=== PATIENT | male | born 1970 | race Caucasian/White ===

== ENCOUNTER → 2019-06-28 | Outpatient (CLI) | payer OTHER ==
--- NOTE | 2019-06-29 02:02 | ECWPNPC ---
PATIENT NAME: DIANA APPIAH : 1970 GENDER: MALE VISIT DATE: 06/28/2019 DISCHARGE DATE: 06/28/19 0948 VISIT LOCKED DATE TIME: PHYSICIAN: HARDY ALDRICH RESOURCE: HARDY ALDRICH REASON FOR APPOINTMENT 1. CHRONIC LOW BACK HISTORY OF PRESENT ILLNESS NEW PATIENT CONSULT: WHEN DID YOUR PAIN FIRST START? . BRIEFLY DESCRIBE HOW YOUR PAIN STARTED? . HOW DOES YOUR PAIN CHANGE WITH TIME? . DOES YOUR PAIN AWAKEN YOU FROM SLEEP? . HOW MANY HOURS OF SLEEP DO YOU NORMALLY GET? . ANY DIAGNOSTIC TESTING? . FACILITY WHERE TESTS WERE DONE? ____. PAIN TREATMENT TREATMENT YES CANCER HAVE YOU EVER HAD ANY TYPE OF CANCER?NO NO. 49-YEAR-OLD GENTLEMAN HERE FOR EVALUATION AND TREATMENT OF PERSISTENT LOW BACK PAIN AND RIGHT LEG RADICULAR SYMPTOMS. INITIALLY PAIN BEGAN AFTER A CHIROPRACTIC ADJUSTMENT IN 2000. HE ENDED UP HAVING LAMINECTOMY, DISCECTOMY AT L5-S1 WITH RESOLUTION OF HIS PAIN. HAD A RESURGENCE IN LOW BACK PAIN AND BULLET LIKE SCIATIC PAIN IN 2015, WHICH RESOLVED ON ITS OWN. REPORTS THAT AFTER STANDING FOR A PROLONGED PERIOD OF TIME IN DECEMBER 2018, HE BEGAN TO EXPERIENCE LOW BACK PAIN AND RIGHT LEG PAIN THAT WAS AGGRAVATED BY BENDING. HAD SEVERE INCREASE IN PAIN IN APRIL AND SOUGHT MEDICAL ATTENTION AT THE [facility]. HE WAS PLACED ON NAPROXEN, TRAMADOL AND A MRI OF THE LS-SPINE WAS ORDERED. THIS IS SHOWING A RIGHT CENTRAL DISC PROTRUSION AT THE L5-S1 LEVEL SLIGHTLY INCREASED SINCE THE PRIOR EXAM, WHICH ABUTS THE RIGHT S1 NERVE ROOT IN THE LATERAL RECESS. PAIN IN HIS RIGHT LEG HAS GOTTEN BETTER OVER THE PAST FEW WEEKS. RATING PAIN LEVEL A 3-8/10 VAS. REPORTS NIGHTTIME AWAKENINGS DUE TO PAIN. DESCRIBES PAIN STABBING, BURNING AND SHOOTING. DENIES RECENT FEVER, ILLNESS, OR SUDDEN WEIGHT LOSS. DENIES BOWEL OR BLADDER INCONTINENCE. PAIN SCREENING: PATIENT HAS A COMPLAINT OF ACUTE OR CHRONIC PAIN :YES FALL RISK SCREENING: SCREENING : NO FALLS IN THE PAST YEAR. ALEXANDER INVENTORY: QUESTIONNAIRE ASSESSEDTBD SCORE VALUE CALCULATED TBD CURRENT MEDICATIONS TAKING ATORVASTATIN CALCIUM 80 MG TABLET 1 TABLET ORALLY ONCE A DAY TAKING BETAMETHASONE DIPROPIONATE AUG 0.05 % CREAM 1 APPLICATION EXTERNALLY TWICE A DAY DIRECTED TAKING FLURANDRENOLIDE 4 MCG/SQCM TAPE 1 APPLICATION EXTERNALLY DIRECTED TAKING FOLIC ACID 1 MG TABLET 1 TABLET ORALLY ONCE A DAY TAKING METHOTREXATE 2.5 MG TABLET DIRECTED ORALLY 1 TABLET BY MOUTH 4 DAYS A WEEK WITH FOOD FOR PSORIASIS TAKING NAPROXEN 500 MG TABLET DELAYED RELEASE 1 TABLET ORALLY TWICE A DAY WITH BREAKFAST AND DINNER NEEDED TAKING MULTIVITAMIN ADULT - TABLET DIRECTED ORALLY DAILY NOT-TAKING NORCO 5-325 MG TABLET 1-2 TABLETS NEEDED ORALLY EVERY 6 HRS, MAXIMUM 8 TABLETS PER DAY NOT-TAKING LORATADINE 10 MG TABLET 1 TABLET ORALLY ONCE A DAY NOT-TAKING FISH OIL 1000 MG CAPSULE 1 CAPSULE ORALLY ONCE A DAY NOT-TAKING MELOXICAM 15 MG TABLET 1 TABLET ORALLY ONCE A DAY NEEDED FOR PAIN/INFLAMMATION MEDICATION LIST REVIEWED AND RECONCILED WITH THE PATIENT PAST MEDICAL HISTORY TINNITUS LOW BACK PAIN PLAQUE PSORIASIS BLOCKED SALIVARY GLAND RIGHT CENTRAL DISC PROTRUSION AT L5-S1 LEVEL ALLERGIES DUST MITE FECES SURGICAL HISTORY RIGHT HEMILAMINECTOMY L5-S1 2000 RIGHT SHOULDER SURGERY 2016 SALIVARY GLAND DUCT SURGERY 1995 FAMILY HISTORY FATHER: , GLIOBLASTOMA MOTHER: 68 YRS, METASTATIC LUNG CANCER SOCIAL HISTORY GENERAL: TOBACCO USE VAPORYES OTHERS AT HOME: SPOUSE. DIET: REGULAR. LANGUAGE LANGUAGES SPOKEN:INDONESIAN RECREATIONAL DRUG USE DRUG USE?NO EXERCISE: NONE. LEARNING BARRIERS / SPECIAL NEEDS BARRIERS TO LEARNING?YES DIFFICULTY SEEING SMALL PRINT AND SOME DIFFICULTY HEARING DUE TO TINNITUS HEARING IMPAIRED?YES HAS HEARING AIDS BUT PREFERS NOT TO USE THEM. VISION IMPAIRED?YES PRESBYOPIA :CORRECTIVE LENSES COGNITIVELY IMPAIRED?NO READINESS TO LEARN?YES LEARNING PREFERENCES?YES HAS DIFFICULTY READING AND WRITING. :TAPES/VIDEOS, DEMONSTRATION/VERBAL INSTRUCTION LEARNING CAPABILITIES PRESENT?YES EMOTIONAL BARRIERS?NO SPECIAL DEVICES?NO HEAD WAITRESS NEEDED?NO PAIN CLINIC PFS, CLERGY, PUBLIC HEALTH REFERRALS WAS THE PROVIDER NOTIFIED OF ANY PERTINENT INFO?NO PUBLIC HEALTH REFERRAL NEEDED?NO CLERGY REFERRAL NEEDED?NO PFS REFERRAL NEEDED?NO LATEX QUESTIONNAIRE LATEX ALLERGY : HAVE YOU EVER DEVELOPED ANY TYPE OF REACTION AFTER HANDLING LATEX PRODUCTS SUCH RUBBER GLOVES, CONDOMS, DIAPHRAGMS, BALLOONS, SOCKS, OR UNDERWEAR?NO LATEX ALLERGY : HAVE YOU EVER DEVELOPED ANY TYPE OF REACTION DURING OR AFTER DENTAL APPOINTMENT, VAGINAL/RECTAL EXAMINATION, SURGICAL PROCEDURE, OR ANY OTHER EXPOSURE?NO LATEX RISK : HAVE YOU EVER HAD ANY DIFFICULTY BREATHING OR HIVES AFTER EATING OR HANDLING ANY FRUITS, OR VEGETABLES; SUCH KIWI, BANANAS, STONE FRUITS, OR CHESTNUTSNO LATEX RISK : DO YOU HAVE A PREVIOUS PERSONAL HISTORY OF MORE THAN NINE SURGERIES, SPINA BIFIDA, OR REPEATED CATHERIZATIONS? NO LATEX RISK : ARE YOU FREQUENTLY EXPOSED TO LATEX PRODUCTS IN YOUR OCCUPATION?NO DATE ASKED : 06/24/2019 CAFFEINE CAFFEINE USE?YES 4 CUPS COFFEE DAILY IN ADDITION TO SODA ADVANCE DIRECTIVE ADVANCE DIRECTIVE DISCUSSED WITH PATIENT:YES INFORMATION OFFERED AND DECLINED. NONDENOMINATIONAL [id number] AGNOSTIC MARITAL STATUS: . 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 HOSPITALIZATION/MAJOR DIAGNOSTIC PROCEDURE SURGERY REVIEW OF SYSTEMS REVIEWED BY: PROVIDER: HARDY WATTERS . CONSTITUTIONAL: ANY CHANGE IN YOUR MEDICAL CONDITION? NO . CHILLS NO . FEVER NO . INFECTION: DO YOU HAVE NEW INFECTIONS? NO . DO YOU HAVE HISTORY OF MRSA? NO . MUSCULOSKELETAL: ANY NEW PATTERNS OF PAIN OR NUMBNESS? YES - SLIGHTLY BETTER . SYTEMIC LUPUS NO . GASTROENTEROLOGY: ANY NEW CHANGE IN BOWEL CONTROL? NO . BARRETTS ESOPHAGUS NO . CIRRHOSIS NO . HEPATITIS NO . LIVER FAILURE NO . ACID REFLUX NO . UNEXPLAINED WEIGHT LOSS NO . GENITOURINARY: ANY NEW CHANGE IN BLADDER CONTROL? NO . IS THERE A CHANCE YOU COULD BE ? NO . HEMATOLOGY/LYMPH: DO YOU TAKE ANY BLOOD THINNERS? (FOR EXAMPLE- COUMADIN, PLAVIX, AGGRENOX, PLATEL, PRADAXA, OR XARELTO) NO . WHEN WAS YOUR LAST DOSE? DATE: TIME: . LOW PLATELET COUNT NO . SICKLE CELL DISEASE NO . VON WILLIEBRANDS NO . FACTOR V LEIDEN NO . THALLASEMIA NO . ANEMIA NO . EASY BRUISING NO . NEUROLOGY: HAVE YOU FALLEN IN THE PAST 12 MONTHS? NO . ANY NEW EXTREMITY NUMBNESS OR WEAKNESS? NO . HEAD INJURY NO . DEMENTIA NO . CEREBRAL PALSY NO . MULTIPLE SCLEROSIS NO . DIZZINESS NO . HEADACHE YES . STROKES NO . VERTIGO NO . CARDIOLOGY: DO YOU HAVE A PACEMAKER OR DEFIBRILLATOR? NO . ANGINA NO . HEART ATTACK NO . HEART SURGERY NO . CONGESTIVE HEART FAILURE/FLUID OVERLOAD NO . CHEST PAIN NO . HIGH BLOOD PRESSURE NO . IRREGULAR HEART BEAT NO . RESPIRATORY: HAVE YOU BEEN SICK IN THE PAST WEEK? NO . FEVER NO . FLU LIKE SYMPTOMS? NO . CPAP NO . BYPAP NO . ASTHMA NO . EMPHYSEMA NO . CHRONIC LUNG DISEASES NO . SHORTNESS OF BREATH ON EXERTION NO . DO YOU USE ANY TYPE OF TOBACCO (SMOKE, SMOKELESS, CHEW)? NO . COUGH NO . SNORING NO . INTEGUMENTARY: DO YOU HAVE ANY RASHES OR OPEN SORES? NO . ALLERGIC/IMMUNO: ARE YOU ALLERGIC TO IV DYE? NO . ANY NEW ALLERGIES? YES - DUST MITES . PSYCHIATRIC: DO YOU HAVE THOUGHTS OF HURTING YOURSELF OR SOMEONE ELSE? NO . ARE YOU ABUSED, NEGLECTED, OR IN AN UNSAFE ENVIRONMENT? NO . ENDOCRINOLOGY: ARE YOU DIABETIC? NO . THYROID DISORDER NO . OTHER: DO YOU NEED ANY PRESCRIPTIONS? NO . IF YES, PLEASE LIST: ____ . ANY NEW PROBLEMS WITH YOUR MEDICATIONS? NO . WHEN DID YOU LAST EAT? ____ . WHEN DID YOU LAST DRINK? ____ . WHAT DID YOU LAST DRINK? ____ . NAME OF PERSON DRIVING YOU HOME? ____ . DO YOU HAVE ANY OTHER QUESTIONS OR CONCERNS NO . VITAL SIGNS WT 206.0 LBS, HT 72 IN, BMI 27.94 INDEX, BP 130/85 MM HG, HR 87 /MIN, RR 18 /MIN, TEMP 97.6 F, OXYGEN SAT % 97%, NA INITIALS AW 0852, REVIEWED BY: LS. EXAMINATION GENERAL EXAMINATION: GENERAL AWAKE,ALERT ,PLEASANT . PSYCH AFFECT NORMAL . NECK: TRACHEA MIDLINE. NO CERVICAL OR SUPRACLAVICULAR LYMPHADENOPATHY NOTED. LUNGS: LUNG MICHELLE ARE CLEAR TO AUSCULTATION BILATERALLY. GOOD MOVEMENT OF AIR . HEART: S1, S2 IN A REGULAR RATE AND RHYTHM. NO SIGNIFICANT MURMURS, RUBS OR GALLOPS NOTED . MUSCULOSKELETAL: MUSCLE STRENGTH TESTING 5/5 BILATERAL UPPER/LOWER EXTREMITIES. LUMBAR: PALPATION: NEGATIVE FOR PAIN OVER L/S SPINE. NEGATIVE FOR PAIN OVER L/S PARASPINALS. NEGATIVE SI TENDERNESS. SKIN: NO RASH OR SKIN LESIONS. DIAGNOSTIC TESTS REVIEWED MRI L/S SPINE-05/19/2019. ASSESSMENTS LUMBAR DISC DISORDER - M51.9 (PRIMARY) LUMBAR RADICULOPATHY, RIGHT - M54.16 TREATMENT LUMBAR DISC DISORDER NOTES: REQUEST TO STOP METHOTREXATE 3 DAYS PRE-PROCEDURE AND RESTART 3 DAYS POST FROM PRESCRIBING MDL4-5. LESI/CAUDAL. OTHERS NOTES: LUMBAR EPIDURAL STEROID INJECTION MATERIAL WAS PUBLISHED TO [employer]. PREVENTIVE MEDICINE PAIN CLINIC TEACHING: PROCEDURE TEACHING PRE PROCEDURE INSTRUCTIONS REVIEWED WITH PT. VERBALIZED UNDERSTANDING.. PROCEDURE CODES FA211 ESTABILISHED PATIENT [facility] CHARGE DISPOSITION & COMMUNICATION FOLLOW UP POST (REASON: L4-5. LESI/CAUDAL) ELECTRONICALLY SIGNED BY DUONG MCCLELLAN ON 06/28/2019 AT 03:56 PM EST DISCLAIMER : THIS IS A VISIT SUMMARY EXTRACTED FROM THE [employer] CHART. IT IS NOT A COPY OF THE [employer] PROGRESS NOTE. ANN
== END ==
LOC: M PAIN 08:45
PROVIDERS: ATTEND Nurse Practitioner Family
DX: M51.9 Unspecified thoracic, thoracolumbar and lumbosacral intervertebral disc disorder (principal); M54.16 Radiculopathy, lumbar region

== ENCOUNTER → 2019-08-04 | Outpatient (CLI) | payer OTHER ==
[~2019-08-04] MED LIST: ISOVUE-M 300 61% 15ML VIAL (Q9967) As Ordered ONE; LIDOCAINE 1% SDV 30ML VIAL As Ordered ONE; diazePAM 5 MG TAB As Ordered ONE; methylPREDNISolone SUSP 40 MG/ML (DEPO-medrol) VIAL (J1030) As Ordered ONE; oxyCODONE 5MG TAB As Ordered ONE
--- NOTE | 2019-08-04 16:37 | REP ---
C-ARM VIEWS SACRUM AND COCCYX: CLINICAL HISTORY: Pain. Lateral C-arm views of sacrum and coccyx are performed during injection by Dr. Shah. 12 seconds of fluoroscopy time utilized. Electronically Signed by Arcenio Rodriguez MD 08/04/2019 04:47 P
--- NOTE | 2019-08-20 01:54 | ECWPNPC ---
PATIENT NAME: DIANA APPIAH : 1970 GENDER: MALE VISIT DATE: 08/04/2019 DISCHARGE DATE: 08/04/19 1500 VISIT LOCKED DATE TIME: PHYSICIAN: KALLIE BHARDWAJ MD RESOURCE: KALLIE BHARDWAJ MD REASON FOR APPOINTMENT 1. CAUDAL EPIDURAL HISTORY OF PRESENT ILLNESS HISTORY OF PRESENT ILLNESS: PAIN THE PATIENT DESCRIBES THE PAIN... FALL RISK SCREENING: SCREENING :NO FALLS REPORTED IN THE LAST YEAR CURRENT MEDICATIONS TAKING ATORVASTATIN CALCIUM 80 MG TABLET 1 TABLET ORALLY ONCE A DAY, NOTES: 08/01/19 TAKING BETAMETHASONE DIPROPIONATE AUG 0.05 % CREAM 1 APPLICATION EXTERNALLY TWICE A DAY DIRECTED, NOTES: MORE THAN 2 WEEKS AGO TAKING FLURANDRENOLIDE 4 MCG/SQCM TAPE 1 APPLICATION EXTERNALLY DIRECTED, NOTES: MORE THAN 2 WEEKS TAKING FOLIC ACID 1 MG TABLET 1 TABLET ORALLY ONCE A DAY, NOTES: 2 WEEKS AGO TAKING METHOTREXATE 2.5 MG TABLET DIRECTED ORALLY 1 TABLET BY MOUTH 4 DAYS A WEEK WITH FOOD FOR PSORIASIS, NOTES: MORE THAN 2 WEEKS AGO TAKING NAPROXEN 500 MG TABLET DELAYED RELEASE 1 TABLET ORALLY TWICE A DAY WITH BREAKFAST AND DINNER NEEDED, NOTES: 1 WEEK AGO TAKING MULTIVITAMIN ADULT - TABLET DIRECTED ORALLY DAILY, NOTES: 08/01/19 NOT-TAKING NORCO 5-325 MG TABLET 1-2 TABLETS NEEDED ORALLY EVERY 6 HRS, MAXIMUM 8 TABLETS PER DAY NOT-TAKING LORATADINE 10 MG TABLET 1 TABLET ORALLY ONCE A DAY NOT-TAKING FISH OIL 1000 MG CAPSULE 1 CAPSULE ORALLY ONCE A DAY NOT-TAKING MELOXICAM 15 MG TABLET 1 TABLET ORALLY ONCE A DAY NEEDED FOR PAIN/INFLAMMATION MEDICATION LIST REVIEWED AND RECONCILED WITH THE PATIENT PAST MEDICAL HISTORY TINNITUS LOW BACK PAIN PLAQUE PSORIASIS BLOCKED SALIVARY GLAND RIGHT CENTRAL DISC PROTRUSION AT L5-S1 LEVEL ALLERGIES DUST MITE FECES SURGICAL HISTORY RIGHT HEMILAMINECTOMY L5-S1 2000 RIGHT SHOULDER SURGERY 2016 SALIVARY GLAND DUCT SURGERY 1995 FAMILY HISTORY FATHER: , GLIOBLASTOMA MOTHER: 68 YRS, METASTATIC LUNG CANCER SOCIAL HISTORY GENERAL: TOBACCO USE VAPORYES OTHERS AT HOME: SPOUSE. DIET: REGULAR. LANGUAGE LANGUAGES SPOKEN:HEBREW NEW PATIENT PAIN DIARY PATIENT DESCRIBES PAIN :BURNING, IT COMES AND GOES FROM 0-10, WHAT LEVEL IS YOUR PAIN TODAY?3 RECREATIONAL DRUG USE DRUG USE?NO EXERCISE: NONE. LEARNING BARRIERS / SPECIAL NEEDS BARRIERS TO LEARNING?YES DIFFICULTY SEEING SMALL PRINT AND SOME DIFFICULTY HEARING DUE TO TINNITUS HEARING IMPAIRED?YES HAS HEARING AIDS BUT PREFERS NOT TO USE THEM. VISION IMPAIRED?YES PRESBYOPIA COGNITIVELY IMPAIRED?NO :CORRECTIVE LENSES READINESS TO LEARN?YES LEARNING PREFERENCES?YES HAS DIFFICULTY READING AND WRITING. 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 NO , CLERGY REFERRAL NEEDED? NO , PUBLIC HEALTH REFERRAL NEEDED? NO , WAS THE PROVIDER NOTIFIED OF ANY PERTINENT INFO? NO. LATEX QUESTIONNAIRE LATEX ALLERGY : HAVE YOU EVER DEVELOPED ANY TYPE OF REACTION AFTER HANDLING LATEX PRODUCTS SUCH RUBBER GLOVES, CONDOMS, DIAPHRAGMS, BALLOONS, SOCKS, OR UNDERWEAR?NO LATEX ALLERGY : HAVE YOU EVER DEVELOPED ANY TYPE OF REACTION DURING OR AFTER DENTAL APPOINTMENT, VAGINAL/RECTAL EXAMINATION, SURGICAL PROCEDURE, OR ANY OTHER EXPOSURE?NO DATE ASKED : 06/24/2019 LATEX RISK : HAVE YOU EVER HAD ANY DIFFICULTY BREATHING OR HIVES AFTER EATING OR HANDLING ANY FRUITS, OR VEGETABLES; SUCH KIWI, BANANAS, STONE FRUITS, OR CHESTNUTSNO LATEX RISK : DO YOU HAVE A PREVIOUS PERSONAL HISTORY OF MORE THAN NINE SURGERIES, SPINA BIFIDA, OR REPEATED CATHERIZATIONS? NO LATEX RISK : ARE YOU FREQUENTLY EXPOSED TO LATEX PRODUCTS IN YOUR OCCUPATION?NO CAFFEINE CAFFEINE USE?YES 4 CUPS COFFEE DAILY IN ADDITION TO SODA ADVANCE DIRECTIVE ADVANCE DIRECTIVE DISCUSSED WITH PATIENT:YES INFORMATION OFFERED AND DECLINED. JEHOVAH'S WITNESS [id number] AGNOSTIC MARITAL STATUS: . 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 HOSPITALIZATION/MAJOR DIAGNOSTIC PROCEDURE SURGERY REVIEW OF SYSTEMS REVIEWED BY: PROVIDER: . CONSTITUTIONAL: ANY CHANGE IN YOUR MEDICAL CONDITION? NO . CHILLS NO . FEVER NO . INFECTION: DO YOU HAVE NEW INFECTIONS? NO . DO YOU HAVE HISTORY OF MRSA? NO . MUSCULOSKELETAL: ANY NEW PATTERNS OF PAIN OR NUMBNESS? NO . GASTROENTEROLOGY: ANY NEW CHANGE IN BOWEL CONTROL? NO . GENITOURINARY: ANY NEW CHANGE IN BLADDER CONTROL? NO . IS THERE A CHANCE YOU COULD BE ? NO . HEMATOLOGY/LYMPH: DO YOU TAKE ANY BLOOD THINNERS? (FOR EXAMPLE- COUMADIN, PLAVIX, AGGRENOX, PLATEL, PRADAXA, OR XARELTO) NO . WHEN WAS YOUR LAST DOSE? DATE: TIME: . NEUROLOGY: HAVE YOU FALLEN IN THE PAST 12 MONTHS? NO . ANY NEW EXTREMITY NUMBNESS OR WEAKNESS? NO . CARDIOLOGY: DO YOU HAVE A PACEMAKER OR DEFIBRILLATOR? NO . RESPIRATORY: HAVE YOU BEEN SICK IN THE PAST WEEK? NO . FEVER NO . FLU LIKE SYMPTOMS? NO . COUGH NO . INTEGUMENTARY: DO YOU HAVE ANY RASHES OR OPEN SORES? NO . ALLERGIC/IMMUNO: ARE YOU ALLERGIC TO IV DYE? NO . ANY NEW ALLERGIES? NO . PSYCHIATRIC: DO YOU HAVE THOUGHTS OF HURTING YOURSELF OR SOMEONE ELSE? NO . ARE YOU ABUSED, NEGLECTED, OR IN AN UNSAFE ENVIRONMENT? NO . ENDOCRINOLOGY: ARE YOU DIABETIC? NO . OTHER: DO YOU NEED ANY PRESCRIPTIONS? NO . IF YES, PLEASE LIST: ____ . ANY NEW PROBLEMS WITH YOUR MEDICATIONS? NO . WHEN DID YOU LAST EAT? 08/03/19 . WHEN DID YOU LAST DRINK? 08/04/19 1100 . WHAT DID YOU LAST DRINK? COFFEE WITH HONEY . NAME OF PERSON DRIVING YOU HOME? NOHELIA () . DO YOU HAVE ANY OTHER QUESTIONS OR CONCERNS NO . VITAL SIGNS WT 204.0 LBS, HT 72 IN, BMI 27.66 INDEX, BP 142/98 MM HG, HR 94 /MIN, RR 18 /MIN, TEMP 97.5 F, OXYGEN SAT % 100%, NA INITIALS AW 1300, REVIEWED BY: LS. 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 KALLIE BHARDWAJ YARN TESTER NONE ANESTHESIA LOCAL PRE PROCEDURE NOTE THE PATIENT HAS A HISTORY OF CHRONIC LOW BACK AND LEG PAIN. I EVALUATED THE PATIENT AND REVIEWED THE CHART. I WENT OVER THE RISKS, ALTERNATIVES, AND BENEFITS ASSOCIATED WITH THIS PROCEDURE. I DISCUSSED WITH THE PATIENT THAT THE USE OF STEROIDS MAY CONTRIBUTE TO IMMUNOSUPPRESSION OF HIS BODY AGAINST INFECTIONS SUCH THE DE JESUS VIRUS, COVID-19.HE IS AWARE OF THE POTENTIAL COMPLICATIONS ASSOCIATED WITH AN INFECTION OF THIS VIRUS INCLUDING . I ALSO DISCUSSED WITH THE PATIENT THE URGENCY OF THIS PROCEDURE. THE PATIENT EXPRESSED THAT HE CANNOT FUNCTION WITH THE PRESENT PAIN. THE PATIENT UNDERSTANDS THAT I CANNOT GUARANTEE OUTCOMES WITH THIS PROCEDURE. THE PATIENT GIVES CONSENT TO PERFORM THE PROCEDURE. THE PATIENT DENIES UNEXPLAINABLE WEIGHT LOSS, FEVER, CHILLS, OR NEW CHANGES IN URINARY OR BOWEL CONTROL DESCRIPTION OF PROCEDURE THE PATIENT WAS BROUGHT TO THE PROCEDURE ROOM AND PLACED IN THE PRONE POSITION. THE LUMBOSACRAL AREA WAS CLEANED WITH BETADINE SOLUTION AND DRAPED ASEPTICALLY. THE PROCEDURE WAS DONE UNDER STERILE CONDITIONS. I CHECKED LATERALITY AND THE LEVEL WHERE THE PROCEDURE WAS GOING TO BE PERFORMED WITH THE PATIENT AND THE SUPPORTING STAFF AT THE MOMENT OF THE TIME OUT IN THE PROCEDURE ROOM. UNDER FLUOROSCOPIC GUIDANCE, THE TARGET POINT WAS SELECTED AT THE EPIDURAL SPACE BELOW THE SACROCOCCYGEAL LIGAMENT. LIDOCAINE 0.5% WAS USE TO NUMB THE SKIN AND THE SUBCUTANEOUS TISSUE BELOW IT. AN EPIDURAL TUOHY NEEDLE, 17-GAUGE, WAS ADVANCED UNDER FLUOROSCOPIC GUIDANCE AND FOLLOWING PATIENT FEEDBACK UNTIL THE EPIDURAL SPACE WAS REACHED 6 CM DEEP INTO THE SKIN BY THE LOSS OF RESISTANCE TECHNIQUE. ISOVUE M DYE 30%, 0.25 ML, WAS INJECTED SHOWING ADEQUATE SPREAD OF THE DYE. THEN, A SOLUTION OF 6 ML OF NORMAL SALINE WITH DEPO-MEDROL 60 MG WAS INJECTED SLOWLY FOLLOWING THE PATIENT FEEDBACK. THERE WAS NO EVIDENCE OF BLOOD, PARESTHESIA OR CEREBROSPINAL FLUID DURING THE PROCEDURE. THE PATIENT WAS SENT TO THE RECOVERY ROOM. THE PATIENT WAS MOVING THE EXTREMITIES AND DOING WELL. THERE WAS NO COMPLICATION DURING THE PROCEDURE. FLUOROSCOPY TIME WAS 12 SECONDS POST PROCEDURE NOTE THE PATIENT WILL BE SEEN IN A FOLLOW UP IN THE NEXT FEW WEEKS. I AM LOOKING FOR LONG LASTING PAIN RELIEF FOR THE PATIENT WITH THIS INJECTION. DEPENDING ON THIS EPIDURAL'S RESULTS, I MAY CONSIDER A L5, S1 TRANSFORAMINAL EPIDURAL INJECTION IN THE FUTURE. INSTRUCTIONS WERE GIVEN, QUESTIONS WERE ANSWERED, AND THE PATIENT EXPRESSED UNDERSTANDING AND AGREES WITH THE PLAN. I, RILEY HARLEY, DOCUMENTED THE ABOVE INFORMATION ACTING A SCRIBE FOR DR. BHARDWAJ. I HAVE REVIEWED THE ABOVE DOCUMENT, WRITTEN BY RILEY HARLEY SCRIBMara AND I VERIFY THAT IT IS ACCURATE. DIAGNOSTIC IMAGING [facility] FLUORO GUIDE SPINE INJECTION (PAIN)[id number] PROCEDURE CODES 11763 LUMBAR/SACRAL W/ IMAGING 6045F RADXPS IN END [id number] PXD DISPOSITION & COMMUNICATION FOLLOW UP 3 WEEKS ELECTRONICALLY SIGNED BY KALLIE BHARDWAJ MD, MD ON 08/19/2019 AT 12:33 PM EDT DISCLAIMER : THIS IS A VISIT SUMMARY EXTRACTED FROM THE [employer]ICAL[employer]KS CHART. IT IS NOT A COPY OF THE [employer] PROGRESS NOTE. MTDD
== END ==
LOC: M PAIN 13:15
PROVIDERS: ATTEND Anesthesiology
DX: M96.1 Postlaminectomy syndrome, not elsewhere classified (principal); M51.17 Intervertebral disc disorders with radiculopathy, lumbosacral region; Z79.899 Other long term (current) drug therapy
CPT/HCPCS: 62323; J1030; Q9967

== ENCOUNTER → 2019-08-12 | Outpatient (CLI) | payer OTHER ==
--- NOTE | 2019-08-23 01:45 | ECWPNPC ---
PATIENT NAME: DIANA APPIAH : 1970 GENDER: MALE VISIT DATE: 08/12/2019 DISCHARGE DATE: 08/12/19 1000 VISIT LOCKED DATE TIME: PHYSICIAN: KALLIE BHARDWAJ MD RESOURCE: KALLIE BHARDWAJ MD REASON FOR APPOINTMENT 1. LOW BACK AND LEG PAIN HISTORY OF PRESENT ILLNESS HISTORY OF PRESENT ILLNESS: PAIN THE PATIENT DESCRIBES THE PAIN... PERMISSION FROM PATIENT WAS RECEIVED TO DO TELEPHONE OFFICE VISIT. THE PATIENT STATES THAT HE IS UNABLE TO DO ZOOM VISITS DUE TO HIS JOB. 49-YEAR-OLD MALE PATIENT WITH A HISTORY OF CHRONIC LOW BACK AND LEG PAIN. THE PATIENT DESCRIBES THE PAIN A SENSATION BUT NOT YET A PAIN WITH A PAIN SCORE RANGING FROM 0-1/10 DEPENDING ON PHYSICAL ACTIVITY. THE PATIENT STATES THAT HE RECEIVED IMPORTANT RELIEF WITH THE CAUDAL EPIDURAL PERFORMED AUGUST 04, 2019. PATIENT DENIES UNEXPLAINABLE WEIGHT LOSS, FEVER, CHILLS, NEW CHANGES ON HIS URINARY OR BOWEL CONTROL. FALL RISK SCREENING: SCREENING :NO FALLS REPORTED IN THE LAST YEAR CURRENT MEDICATIONS TAKING ATORVASTATIN CALCIUM 80 MG TABLET 1 TABLET ORALLY ONCE A DAY, NOTES: 08/01/19 TAKING BETAMETHASONE DIPROPIONATE AUG 0.05 % CREAM 1 APPLICATION EXTERNALLY TWICE A DAY DIRECTED, NOTES: MORE THAN 2 WEEKS AGO TAKING FLURANDRENOLIDE 4 MCG/SQCM TAPE 1 APPLICATION EXTERNALLY DIRECTED, NOTES: MORE THAN 2 WEEKS TAKING FOLIC ACID 1 MG TABLET 1 TABLET ORALLY ONCE A DAY, NOTES: 2 WEEKS AGO TAKING METHOTREXATE 2.5 MG TABLET DIRECTED ORALLY 1 TABLET BY MOUTH 4 DAYS A WEEK WITH FOOD FOR PSORIASIS, NOTES: NOT TAKING DURING THE COVID TAKING NAPROXEN 500 MG TABLET DELAYED RELEASE 1 TABLET ORALLY TWICE A DAY WITH BREAKFAST AND DINNER NEEDED, NOTES: 1 WEEK AGO TAKING MULTIVITAMIN ADULT - TABLET DIRECTED ORALLY DAILY, NOTES: 08/01/19 NOT-TAKING NORCO 5-325 MG TABLET 1-2 TABLETS NEEDED ORALLY EVERY 6 HRS, MAXIMUM 8 TABLETS PER DAY NOT-TAKING LORATADINE 10 MG TABLET 1 TABLET ORALLY ONCE A DAY NOT-TAKING FISH OIL 1000 MG CAPSULE 1 CAPSULE ORALLY ONCE A DAY NOT-TAKING MELOXICAM 15 MG TABLET 1 TABLET ORALLY ONCE A DAY NEEDED FOR PAIN/INFLAMMATION MEDICATION LIST REVIEWED AND RECONCILED WITH THE PATIENT PAST MEDICAL HISTORY TINNITUS LOW BACK PAIN PLAQUE PSORIASIS BLOCKED SALIVARY GLAND RIGHT CENTRAL DISC PROTRUSION AT L5-S1 LEVEL ALLERGIES DUST MITE FECES SURGICAL HISTORY RIGHT HEMILAMINECTOMY L5-S1 2000 RIGHT SHOULDER SURGERY 2016 SALIVARY GLAND DUCT SURGERY 1996 FAMILY HISTORY FATHER: , GLIOBLASTOMA MOTHER: 68 YRS, METASTATIC LUNG CANCER SOCIAL HISTORY GENERAL: TOBACCO USE VAPORYES LATEX QUESTIONNAIRE LATEX ALLERGY : HAVE YOU EVER DEVELOPED ANY TYPE OF REACTION AFTER HANDLING LATEX PRODUCTS SUCH RUBBER GLOVES, CONDOMS, DIAPHRAGMS, BALLOONS, SOCKS, OR UNDERWEAR?NO LATEX ALLERGY : HAVE YOU EVER DEVELOPED ANY TYPE OF REACTION DURING OR AFTER DENTAL APPOINTMENT, VAGINAL/RECTAL EXAMINATION, SURGICAL PROCEDURE, OR ANY OTHER EXPOSURE?NO DATE ASKED : 06/24/2019 LATEX RISK : HAVE YOU EVER HAD ANY DIFFICULTY BREATHING OR HIVES AFTER EATING OR HANDLING ANY FRUITS, OR VEGETABLES; SUCH KIWI, BANANAS, STONE FRUITS, OR CHESTNUTSNO LATEX RISK : DO YOU HAVE A PREVIOUS PERSONAL HISTORY OF MORE THAN NINE SURGERIES, SPINA BIFIDA, OR REPEATED CATHERIZATIONS? NO LATEX RISK : ARE YOU FREQUENTLY EXPOSED TO LATEX PRODUCTS IN YOUR OCCUPATION?NO ALCOHOL SCREENING DID YOU HAVE A DRINK CONTAINING ALCOHOL IN THE PAST YEAR?NO POINTS0 INTERPRETATIONNEGATIVE RECREATIONAL DRUG USE DRUG USE?NO CAFFEINE CAFFEINE USE?YES 4 CUPS COFFEE DAILY IN ADDITION TO [employer] AGNOSTIC LANGUAGE LANGUAGES SPOKEN:GUAMANIAN LEARNING BARRIERS / SPECIAL NEEDS BARRIERS TO LEARNING?YES DIFFICULTY SEEING SMALL PRINT AND SOME DIFFICULTY HEARING DUE TO TINNITUS HEARING IMPAIRED?YES HAS HEARING AIDS BUT PREFERS NOT TO USE THEM. VISION IMPAIRED?YES PRESBYOPIA :CORRECTIVE LENSES COGNITIVELY IMPAIRED?NO READINESS TO LEARN?YES LEARNING PREFERENCES?YES HAS DIFFICULTY READING AND WRITING. 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 DIET: REGULAR. EXERCISE: NONE. MARITAL STATUS: . OTHERS AT HOME: SPOUSE. NEW PATIENT PAIN DIARY TODAY'S VISIT TELEPHONE VISIT 08/12/2019 PATIENT DESCRIBES PAIN :BURNING, IT COMES AND GOES, SHARP FROM 0-10, WHAT LEVEL IS YOUR PAIN TODAY?0 PAIN CLINIC PFS, CLERGY, PUBLIC HEALTH REFERRALS HAS THE PATIENT BEEN EDUCATED REGARDING HIS/HER PLAN OF CARE?YES HAS THE PATIENT BEEN EDUCATED REGARDING PAIN, THE RISK FOR PAIN, THE IMPORTANCE OF EFFECTIVE PAIN MANAGEMENT, AND THE PAIN ASSESSMENT PROCESS?YES ADVANCE DIRECTIVE ADVANCE DIRECTIVE DISCUSSED WITH PATIENT:YES INFORMATION OFFERED AND DECLINED. HOSPITALIZATION/MAJOR DIAGNOSTIC PROCEDURE SURGERY REVIEW OF SYSTEMS REVIEWED BY: PROVIDER: KALLIE BHARDWAJ MD . CONSTITUTIONAL: ANY CHANGE IN YOUR MEDICAL CONDITION? NO . CHILLS NO . FEVER NO . INFECTION: DO YOU HAVE NEW INFECTIONS? NO . DO YOU HAVE HISTORY OF MRSA? NO . MUSCULOSKELETAL: ANY NEW PATTERNS OF PAIN OR NUMBNESS? NO . GASTROENTEROLOGY: ANY NEW CHANGE IN BOWEL CONTROL? NO . GENITOURINARY: ANY NEW CHANGE IN BLADDER CONTROL? NO . IS THERE A CHANCE YOU COULD BE ? NO . HEMATOLOGY/LYMPH: DO YOU TAKE ANY BLOOD THINNERS? (FOR EXAMPLE- COUMADIN, PLAVIX, AGGRENOX, PLATEL, PRADAXA, OR XARELTO) NO . WHEN WAS YOUR LAST DOSE? DATE: TIME: . NEUROLOGY: HAVE YOU FALLEN IN THE PAST 12 MONTHS? NO . ANY NEW EXTREMITY NUMBNESS OR WEAKNESS? NO . CARDIOLOGY: DO YOU HAVE A PACEMAKER OR DEFIBRILLATOR? NO . RESPIRATORY: HAVE YOU BEEN SICK IN THE PAST WEEK? NO . FEVER NO . FLU LIKE SYMPTOMS? NO . COUGH NO . INTEGUMENTARY: DO YOU HAVE ANY RASHES OR OPEN SORES? NO . ALLERGIC/IMMUNO: ARE YOU ALLERGIC TO IV DYE? NO . ANY NEW ALLERGIES? NO . PSYCHIATRIC: DO YOU HAVE THOUGHTS OF HURTING YOURSELF OR SOMEONE ELSE? NO . ARE YOU ABUSED, NEGLECTED, OR IN AN UNSAFE ENVIRONMENT? NO . ENDOCRINOLOGY: ARE YOU DIABETIC? NO . OTHER: DO YOU NEED ANY PRESCRIPTIONS? NO . IF YES, PLEASE LIST: ____ . ANY NEW PROBLEMS WITH YOUR MEDICATIONS? NO . WHEN DID YOU LAST EAT? ____ . WHEN DID YOU LAST DRINK? ____ . WHAT DID YOU LAST DRINK? ____ . NAME OF PERSON DRIVING YOU HOME? ____ . DO YOU HAVE ANY OTHER QUESTIONS OR CONCERNS NO . EXAMINATION GENERAL EXAMINATION: TELEPHONE VISIT. PATIENT IS ALERT, ORIENTED TIMES THREE AND COOPERATIVE. ASSESSMENTS POST LAMINECTOMY SYNDROME - M96.1 (PRIMARY) TREATMENT POST LAMINECTOMY SYNDROME CLINICAL NOTES: WE DISCUSSED SEVERAL ALTERNATIVES WITH MR. APPIHA REGARDING HIS TREATMENT OPTIONS AND CARE. THE PATIENT STATES THAT HE GOT SIGNIFICANT RELIEF FROM HIS EPIDURAL. HE EXPLAINED THAT THE INJECTION WAS UNCOMFORTABLE. I EXPLAINED TO HIM THAT IF WE NEED TO REPEAT THE INJECTION IN THE FUTURE I CAN GIVE HIM MORE PO MEDS OR EVEN DO IV SEDATION. THE PATIENT WILL FOLLOWUP WITH HARDY IN 2 MONTHS. THE PATIENT STATES THAT IS WITH HAPPY WITH HIS CURRENT RESULTS FROM THE INJECTION. THE PATIENT KNOWS TO CALL THE OFFICE IF HE HAS ANY QUESTIONS OR CONCERNS. THE PATIENT UNDERSTANDS AND IS IN AGREEMENT WITH THE TREATMENT PLAN. THE TOTAL TIME FOR THE TELEPHONE VISIT WAS 21 MINUTES. I, FRANDY VASQUES, DOCUMENTED THE ABOVE INFORMATION ACTING A SCRIBE FOR DR. BHARDWAJ. I HAVE REVIEWED THE ABOVE DOCUMENT, WRITTEN BY FRANDY VASQUES, VINER OPERATOR, AND I VERIFY THAT IT IS ACCURATE. . OTHERS CLINICAL NOTES: UNABLE TO TAKE VITAL SIGNS, THIS IS A TELEPHONE/VIRTUAL VISIT LAS. 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 CANCEL NEXT WEEK APPT (REASON: LOW BACK AND LEG PAIN) ELECTRONICALLY SIGNED BY KALLIE BHARDWAJ MD, MD ON 08/22/2019 AT 04:44 PM EDT DISCLAIMER : THIS IS A VISIT SUMMARY EXTRACTED FROM THE [facility] CHART. IT IS NOT A COPY OF THE [facility] PROGRESS NOTE. MTDD
== END ==
LOC: M PAIN 10:30
PROVIDERS: ATTEND Anesthesiology
DX: M96.1 Postlaminectomy syndrome, not elsewhere classified (principal); Z79.899 Other long term (current) drug therapy

== ENCOUNTER → 2021-03-07 | Outpatient (CLI) | payer OTHER ==
--- NOTE | 2021-03-07 22:36 | REPVR ---
PROCEDURE INFORMATION: Exam: MRA Head Without Contrast; Arteriography Exam date and time: 03/07/2021 5:18 PM Age: 51 years old Clinical indication: Other: F/u abnormality, eval for aneurysm TECHNIQUE: Imaging protocol: Magnetic resonance angiography head without contrast. Exam focused on the arteries. COMPARISON: MRI BRAIN W/O CONTRAST - OUTSIDE PRIOR 01/22/2018 12:00 AM FINDINGS: ANTERIOR CIRCULATION: Right internal carotid artery: Intracranial segment is patent with no significant stenosis. No aneurysm. Right middle cerebral artery: No occlusion or significant stenosis. No aneurysm. Right anterior cerebral artery: No occlusion or significant stenosis. No aneurysm. Left internal carotid artery: Intracranial segment is patent with no significant stenosis. No aneurysm. Left middle cerebral artery: Small 2.4 x 1.5 mm saccular aneurysm projecting posteriorly at the left M1-M2 junction of a posterior left M2 branch. Left MCA branches are patent. Left anterior cerebral artery: No occlusion or significant stenosis. No aneurysm. POSTERIOR CIRCULATION: Right vertebral artery: No occlusion or significant stenosis. No aneurysm. Left vertebral artery: No occlusion or significant stenosis. No aneurysm. Basilar artery: No occlusion or significant stenosis. No aneurysm. Right posterior cerebral artery: No occlusion or significant stenosis. No aneurysm. Left posterior cerebral artery: No occlusion or significant stenosis. No aneurysm. IMPRESSION: Small 2.4 x 1.5 mm saccular aneurysm projecting posteriorly from the left M1-M2 junction. Follow-up at the discretion of neurosurgery Electronically signed by: Lui Hsu On 03/07/2021 22:35:30 PM
== END ==
LOC: M RAD 16:43
PROVIDERS: ATTEND Physician Assistant
DX: I67.1 Cerebral aneurysm, nonruptured (principal); Z51.81 Encounter for therapeutic drug level monitoring; I10 Essential (primary) hypertension; R73.01 Impaired fasting glucose; M54.59 Other low back pain; N52.9 Male erectile dysfunction, unspecified; E78.2 Mixed hyperlipidemia; L40.8 Other psoriasis; M79.671 Pain in right foot; M25.511 Pain in right shoulder; Z72.0 Tobacco use

== ENCOUNTER → 2021-10-02 | Outpatient (CLI) | payer OTHER ==
[~2021-10-02] MED LIST changes: +ATOR80TA59 PO; -ISOVUE-M 300 61% 15ML VIAL (Q9967) As Ordered ONE; -LIDOCAINE 1% SDV 30ML VIAL As Ordered ONE; +LISI10TA22 PO; +NO ITAB PO; -diazePAM 5 MG TAB As Ordered ONE; -methylPREDNISolone SUSP 40 MG/ML (DEPO-medrol) VIAL (J1030) As Ordered ONE; -oxyCODONE 5MG TAB As Ordered ONE
== END ==
LOC: M LABSMTC 09:16
PROVIDERS: ATTEND Anesthesiology
DX: Z20.828 Contact with and (suspected) exposure to other viral communicable diseases (principal); Z11.59 Encounter for screening for other viral diseases

== ENCOUNTER 2021-10-07 06:42 | Day surgery (SDC) | payer OTHER ==
[~2021-10-07] VITALS: Ht 182.9 cm; Wt 98.4 kg
[~2021-10-07 06:42] MED LIST changes: +NS 1,000 ML IV ONE
[2021-10-07] MEDS ORDERED: LIDOCAINE 2% 100MG/5ML SDV (FOR ANES.) As Ordered ONE (06:55)
[2021-10-07] MEDS ORDERED: fentaNYL 100 MCG/2 ML INJECTION As Ordered ONE (06:55)
[2021-10-07] MEDS ORDERED: propofoL 500 MG/50 ML VIAL As Ordered ONE (06:55)
[2021-10-07 08:19] VITALS: BP 101/60
== END 2021-10-07 08:21 | disposition home or self-care (01) ==
LOC: M OPP 06:42
PROVIDERS: ATTEND Internal Medicine Gastroenterology
DX: Z12.11 Encounter for screening for malignant neoplasm of colon (principal); K63.5 Polyp of colon; K64.0 First degree hemorrhoids; K44.9 Diaphragmatic hernia without obstruction or gangrene; K22.89 Other specified disease of esophagus; R12 Heartburn; Z79.02 Long term (current) use of antithrombotics/antiplatelets; Z79.899 Other long term (current) drug therapy; Z87.891 Personal history of nicotine dependence
CPT/HCPCS: 43239; 45380; 88305; J3010

== ENCOUNTER → 2022-06-12 | Outpatient (CLI) | payer OTHER ==
[~2022-06-12] MED LIST changes: -NS 1,000 ML IV ONE
== END ==
LOC: M RAD 08:33
PROVIDERS: ATTEND Neurological Surgery
DX: I67.1 Cerebral aneurysm, nonruptured (principal)